=== PATIENT | female | born 1935 | race Caucasian/White ===

== ENCOUNTER 2017-05-02 15:31 | Inpatient (IN) | payer OTHER, MEDICARE ==
[~2017-05-02] VITALS: Ht 165.1 cm; Wt 68.7 kg
[2017-05-02 15:48] VITALS: BP 155/74; PULSE 87; RESP 18; TEMP 99.4; O2SAT 98
--- NOTE | 2017-05-02 15:49 | PD ---
HPI . headache/AMS/lethargy Chief Complaint: headache/AMS/lethargy Time Seen by Provider: 15:49 Travel History International Travel<30 days: No Contact w/Intl Traveler<30days: No Traveled to known affect area: No History of Present Illness HPI 81-year-old female with history of diabetes and chronic kidney disease brought in by [facility] secondary lethargy and altered mental status. Apparently patient's son called 911 due to patient being extremely lethargic and having some altered mental status. Son reports that the patient has not been acting herself for the past day or so. Paramedics report that patient had no specific complaints other than headache on arrival and that she had a mild temperature elevation of approximately 100.1 orally. Here in the emergency department patient does have some altered mental status, she is aware of person and place. She tells me that she has a frontal headache and that it woke her up this morning. She is a poor historian has a very difficult time relaying any other information. Patient was supposed to see nephrology for CKD. On initial inspection patient does have some dried blood on her right nostril. She also appears to have dried blood around her mouth. PFSH Past Medical History Diabetes: Yes Social History Alcohol Use: No Tobacco Use: No Substance Use: No Review of Systems General / Constitutional: No: Fever Eyes: No: Visual changes HENT: No: Headaches Cardiovascular: No: Chest Pain or Discomfort Respiratory: No: Shortness of Breath Gastrointestinal: No: Abdominal Pain Genitourinary: No: Dysuria Musculoskeletal: No: Pain Skin: No Rash Neurologic: Positive: Headache, No: Weakness Psychiatric: No: Depression Endocrine: No: Polydipsia Hematologic/Lymphatic: No: Easy Bruising Physical Exam Narrative GENERAL: AAO x 2, well-nourished, but appears tired SKIN: Warm and dry. No visible rashes or bruising. HEAD: Normocephalic and atraumatic. EYES: No scleral icterus. No injection or drainage. EOM intact, PERRLA ENT: No nasal drainage noted. Mucous membranes pink. Airway patent. coffee ground emesis reminiscent, dried blood in the right nostril, left TM erythematous and appears to have some blood behind TM (hemotympanum) NECK: Supple, trachea midline. No JVD. No lymphadenopathy CARDIOVASCULAR: Regular rate and rhythm without murmurs, gallops, or rubs. RESPIRATORY: Breath sounds equal bilaterally. No accessory muscle use. No rhonchi or rales. GASTROINTESTINAL: Abdomen soft, non-tender, nondistended. EXTREMITIES: No cyanosis, trace pedal edema bilaterally BACK: No obvious deformity. No CVA tenderness. NEURO: CN II-12 intact, PSYCH: AAO x 2, Data Data Last Documented VS Vital Signs Date Time Temp Pulse Resp B/P Pulse Ox O2 Delivery O2 Flow Rate FiO2 05/02/17 16:13 98 Room Air 05/02/17 15:48 99.4 87 18 155/74 Orders Complete Blood Count With Diff (05/02/17 15:49) Comprehensive Metabolic Panel (05/02/17 15:49) Ct Brain W/O Iv Contrast(Rout) (05/02/17 15:49) Ecg Monitoring (05/02/17 15:49) Iv Access Insert/Monitor (05/02/17 15:49) Oximetry (05/02/17 15:49) Electrocardiogram (05/02/17 15:49) Prothrombin Time / Inr (Pt) (05/02/17 15:49) Act Partial Throm Time (Ptt) (05/02/17 15:49) Lactic Acid Sepsis Protocol (05/02/17 15:49) Urinalysis - C+S If Indicated (05/02/17 15:49) Blood Culture (05/02/17 15:49) Chest, Single Ap (05/02/17 15:49) Blood Glucose (05/02/17 15:49) Oxygen Administration (05/02/17 15:49) ^ Straight Catheter (05/02/17 16:01) Ct Cerv Spine W/O Contrast (05/02/17 ) Admit Order (Ed Use Only) (05/02/17 18:35) Labs Laboratory Tests Test 05/02/17 05/02/17 16:05 16:10 White Blood Count 10.5 TH/MM3 Red Blood Count 4.68 MIL/MM3 Hemoglobin 12.9 GM/DL Hematocrit 40.0 % Mean Corpuscular Volume 85.4 FL Mean Corpuscular Hemoglobin 27.7 PG Mean Corpuscular Hemoglobin 32.4 % Concent Red Cell Distribution Width 16.3 % Platelet Count 243 TH/MM3 Mean Platelet Volume 9.1 FL Neutrophils (%) (Auto) 83.9 % Lymphocytes (%) (Auto) 9.6 % Monocytes (%) (Auto) 6.4 % Eosinophils (%) (Auto) 0.0 % Basophils (%) (Auto) 0.1 % Neutrophils # (Auto) 8.8 TH/MM3 Lymphocytes # (Auto) 1.0 TH/MM3 Monocytes # (Auto) 0.7 TH/MM3 Eosinophils # (Auto) 0.0 TH/MM3 Basophils # (Auto) 0.0 TH/MM3 CBC Comment DIFF FINAL Differential Comment Prothrombin Time 10.7 SEC Prothromb Time International 1.0 RATIO Ratio Activated Partial 23.4 SEC Thromboplast Time Sodium Level 135 MEQ/L Potassium Level 4.1 MEQ/L Chloride Level 106 MEQ/L Carbon Dioxide Level 19.9 MEQ/L Anion Gap 9 MEQ/L Blood Urea Nitrogen 19 MG/DL Creatinine 0.98 MG/DL Estimat Glomerular Filtration 54 ML/MIN Rate Random Glucose 181 MG/DL Lactic Acid Level 1.9 mmol/L Calcium Level 9.0 MG/DL Total Bilirubin 0.6 MG/DL Aspartate Amino Transf 26 U/L (AST/SGOT) Alanine Aminotransferase 15 U/L (ALT/SGPT) Alkaline Phosphatase 67 U/L Total Protein 7.2 GM/DL Albumin 3.6 GM/DL Urine Color YELLOW Urine Turbidity CLEAR Urine pH 5.5 Urine Specific [place] 1.025 Urine Protein TRACE mg/dL Urine Glucose (UA) 1000 mg/dL Urine Ketones NEG mg/dL Urine Occult Blood SMALL Urine Nitrite NEG Urine Bilirubin NEG Urine Urobilinogen LESS THAN 2.0 MG/DL Urine Leukocyte Esterase NEG Urine RBC 2 /hpf Urine WBC 1 /hpf Urine Squamous Epithelial 1 /hpf Cells Urine Mucus FEW /lpf Microscopic Urinalysis Comment CATH-CULT NOT IND MDM Medical Decision Making Medical Screen Exam Complete: Yes Emergency Medical Condition: Yes Medical Record Reviewed: Yes Differential Diagnosis UTI, Pneumonia, sepsis, AMS, SAH, brain bleed, CVA Narrative Course 81 yr old female here with c/o headache. Her son reports she is very lethargic. On exam she does have some blood in her left TM. IV access obtained. Labs ordered, CXR and CT scan of brain ordered. Case was discussed with Dr. Dc. CXR with left basilar airspace disease CT brain with ICH. Last Impressions Head CT 05/02/17 3825 Signed Impressions: Service Date/Time: April 17:09 - CONCLUSION: 1. Acute parenchymal hemorrhage within the left frontal lobe measuring 13 mm. 2. Scattered acute subdural hematomas within the frontal lobes bilaterally measuring 4 mm on the left and 3 mm on the right, left parafalcine region in the high parietal lobe measuring 5 mm and left temporal region measuring 5 mm. 3. Minimal acute subarachnoid hemorrhage within the left frontal lobe and bilateral temporal lobes. Miko Rosado MD Chest X-Ray 05/02/17 1544 Signed Impressions: Service Date/Time: April 15:56 - CONCLUSION: Left basilar airspace disease with probable associated effusion. Gold Damon MD 1735: Discussed with the nurse for Dr. Negron, he will look at the scan 1744: Patient will be admitted to the compensation analyst, call back requested 1839: Case discussed with Dr. Lizama. Patient will be admitted under his care. CXR with airspace disease and we would likely to administer azithromycin, however, patient cannot give drug allergy info and family members are not here to provide that info. We have discussed the case with the patient and explained her results, however with her memory issues she is unable to truly understand her condition. Once again, her family is not here for us to provide any information to them. Patient is stable. She is protecting her airway. Admission orders placed. Diagnosis Primary Impression: Brain bleed Admitting Information Admitting Physician Requests: Admit Condition: Stable Lana Richter May 02, 2017 15:49
[2017-05-02 16:13] VITALS: O2SAT 98
--- NOTE | 2017-05-02 16:35 | RADRPT ---
EXAM DATE/TIME: 05/02/2017 15:56 [facility] COMPARISON: No previous studies available for comparison. INDICATIONS : Lethargic, weakness. MEDICAL HISTORY : Diabetes. Chronic kidney diesease. SURGICAL HISTORY : None. ENCOUNTER: Initial ACUITY: 3 days PAIN SCORE: Non-responsive. LOCATION: chest FINDINGS: A single view of the chest demonstrates the lungs to be symmetrically aerated with left basilar atele ctasis and possible associated effusion. Right lung is clear. Heart size is normal. Atherosclerotic c alcification of the aortic arch. Degenerative spurring of the dorsal spine. CONCLUSION: Left basilar airspace disease with probable associated effusion. Gold Damon MD on May 02, 2017 at 16:33 Board Certified Radiologist. This report was verified electronically.
[2017-05-02 16:49] LABS: AUTOMATED NEUTROPHIL # 8.8 TH/MM3 (1.8-7.7); BASOPHIL % 0.1 % (0.0-2.0); HEMO FLAGS DIFF FINAL; LYMPH % 9.6 % (9.0-44.0); MEAN CELL VOLUME 85.4 FL (80.0-100.0); MEAN CORPUSCULAR HEMOGLOBIN 27.7 PG (27.0-34.0); MEAN CORPUSCULAR HGB CONC 32.4 % (32.0-36.0); MONO % 6.4 % (0.0-8.0); NEUT % 83.9 % (16.0-70.0); PLATELET COUNT 243 TH/MM3 (150-450); RED BLOOD COUNT 4.68 MIL/MM3 (4.00-5.30); RED CELL DISTRIBUTION WIDTH 16.3 % (11.6-17.2); WHITE BLOOD COUNT 10.5 TH/MM3 (4.0-11.0)
[2017-05-02 16:58] LABS: BLOOD, URINE SMALL (NEG); GLUCOSE,URINE 1000 mg/dL (NEG); KETONE, URINE NEG (NEG); MUCUS URINE FEW /lpf (OCC); NITRITE,URINE NEG (NEG); PH, URINE 5.5 (5.0-8.5); SQUAMOUS EPITHELIAL CELL URINE 1 /hpf (0-5); URINE COLOR YELLOW (YELLW/STRAW)
[2017-05-02 16:59] LABS: COMMENT (UR) CATH-CULT NOT IND; CULTURE IF INDICATED CATH CULTURE NOT IND
[2017-05-02 17:05] LABS: ALKALINE PHOSPHATASE 67 U/L (45-117); ALT (GPT) 15 U/L (10-53); TOTAL BILIRUBIN ADULT 0.6 MG/DL (0.2-1.0)
[2017-05-02 17:11] LABS: ANION GAP 9 MEQ/L (5-15); AST (GOT) 26 U/L (15-37); BICARBONATE 19.9 MEQ/L (21.0-32.0); BLOOD UREA NITROGEN 19 MG/DL (7-18); CHLORIDE 106 MEQ/L (98-107); GLOMERULAR FILTRATION RATE 54 ML/MIN (>89); POTASSIUM 4.1 MEQ/L (3.5-5.1); SODIUM (NA) 135 MEQ/L (136-145)
[2017-05-02 17:21] LABS: APTT (PATIENT) 23.4 SEC (24.3-30.1); PROTHROMBIN TIME - PATIENT 10.7 SEC (9.8-11.6)
--- NOTE | 2017-05-02 17:29 | RADRPT ---
EXAM DATE/TIME: 05/02/2017 17:09 [facility] COMPARISON: No previous studies available for comparison. INDICATIONS : Altered mental status since last night, complains of headache. RADIATION DOSE: 30.32 CTDIvol (mGy) MEDICAL HISTORY : None SURGICAL HISTORY : None. ENCOUNTER: Initial ACUITY: 1 day PAIN SCALE: 5/10 LOCATION: Cranial TECHNIQUE: Multiple contiguous axial images were obtained of the head. Using automated exposure control and adj ustment of the mA and/or kV according to patient size, radiation dose was kept as low as reasonably a chievable to obtain optimal diagnostic quality images. DICOM format image data is available electro nically for review and comparison. FINDINGS: There is evidence of focal left frontal acute parenchymal contusion measuring 13 mm. Acute subarachn oid hemorrhage is noted within the temporal lobes bilaterally as well as within the left frontal lobe . Tiny bifrontal acute subdural hematomas are noted and measure 4 mm on the left and 3 mm on the rig ht. Approximately 5 mm left parafalcine acute subdural hematoma is also noted. A 5 mm left temporal extraaxial bleed is also noted and either represents a tiny epidural or subdural hematoma. There is no midline shift. No acute infarction is noted. CONCLUSION: 1. Acute parenchymal hemorrhage within the left frontal lobe measuring 13 mm. 2. Scattered acute subdural hematomas within the frontal lobes bilaterally measuring 4 mm on the left and 3 mm on the right, left parafalcine region in the high parietal lobe measuring 5 mm and left tem poral region measuring 5 mm. 3. Minimal acute subarachnoid hemorrhage within the left frontal lobe and bilateral temporal lobes. Miko Rosado MD on May 02, 2017 at 17:17 Board Certified Radiologist. This report was verified electronically.
--- NOTE | 2017-05-02 18:23 | PD ---
Data Data Last Documented VS Vital Signs Date Time Temp Pulse Resp B/P Pulse Ox O2 Delivery O2 Flow Rate FiO2 05/02/17 16:13 98 Room Air 05/02/17 15:48 99.4 87 18 155/74 Orders Complete Blood Count With Diff (05/02/17 15:49) Comprehensive Metabolic Panel (05/02/17 15:49) Ct Brain W/O Iv Contrast(Rout) (05/02/17 15:49) Ecg Monitoring (05/02/17 15:49) Iv Access Insert/Monitor (05/02/17 15:49) Oximetry (05/02/17 15:49) Electrocardiogram (05/02/17 15:49) Prothrombin Time / Inr (Pt) (05/02/17 15:49) Act Partial Throm Time (Ptt) (05/02/17 15:49) Lactic Acid Sepsis Protocol (05/02/17 15:49) Urinalysis - C+S If Indicated (05/02/17 15:49) Blood Culture (05/02/17 15:49) Chest, Single Ap (05/02/17 15:49) Blood Glucose (05/02/17 15:49) Oxygen Administration (05/02/17 15:49) ^ Straight Catheter (05/02/17 16:01) Ct Cerv Spine W/O Contrast (05/02/17 ) Admit Order (Ed Use Only) (05/02/17 18:35) Labs Laboratory Tests Test 05/02/17 05/02/17 16:05 16:10 White Blood Count 10.5 TH/MM3 Red Blood Count 4.68 MIL/MM3 Hemoglobin 12.9 GM/DL Hematocrit 40.0 % Mean Corpuscular Volume 85.4 FL Mean Corpuscular Hemoglobin 27.7 PG Mean Corpuscular Hemoglobin 32.4 % Concent Red Cell Distribution Width 16.3 % Platelet Count 243 TH/MM3 Mean Platelet Volume 9.1 FL Neutrophils (%) (Auto) 83.9 % Lymphocytes (%) (Auto) 9.6 % Monocytes (%) (Auto) 6.4 % Eosinophils (%) (Auto) 0.0 % Basophils (%) (Auto) 0.1 % Neutrophils # (Auto) 8.8 TH/MM3 Lymphocytes # (Auto) 1.0 TH/MM3 Monocytes # (Auto) 0.7 TH/MM3 Eosinophils # (Auto) 0.0 TH/MM3 Basophils # (Auto) 0.0 TH/MM3 CBC Comment DIFF FINAL Differential Comment Prothrombin Time 10.7 SEC Prothromb Time International 1.0 RATIO Ratio Activated Partial 23.4 SEC Thromboplast Time Sodium Level 135 MEQ/L Potassium Level 4.1 MEQ/L Chloride Level 106 MEQ/L Carbon Dioxide Level 19.9 MEQ/L Anion Gap 9 MEQ/L Blood Urea Nitrogen 19 MG/DL Creatinine 0.98 MG/DL Estimat Glomerular Filtration 54 ML/MIN Rate Random Glucose 181 MG/DL Lactic Acid Level 1.9 mmol/L Calcium Level 9.0 MG/DL Total Bilirubin 0.6 MG/DL Aspartate Amino Transf 26 U/L (AST/SGOT) Alanine Aminotransferase 15 U/L (ALT/SGPT) Alkaline Phosphatase 67 U/L Total Protein 7.2 GM/DL Albumin 3.6 GM/DL Urine Color YELLOW Urine Turbidity CLEAR Urine pH 5.5 Urine Specific [place] 1.025 Urine Protein TRACE mg/dL Urine Glucose (UA) 1000 mg/dL Urine Ketones NEG mg/dL Urine Occult Blood SMALL Urine Nitrite NEG Urine Bilirubin NEG Urine Urobilinogen LESS THAN 2.0 MG/DL Urine Leukocyte Esterase NEG Urine RBC 2 /hpf Urine WBC 1 /hpf Urine Squamous Epithelial 1 /hpf Cells Urine Mucus FEW /lpf Microscopic Urinalysis Comment CATH-CULT NOT IND MDM Supervised Visit with CHACHA: Yes Narrative Course I, Dr. Dc, have reviewed the advance practice practitioner's documentation and am in agreement, met with the patient face to face, made the diagnosis, and the medical decision making was done by me. *My assessment and Findings: This 81-year-old female with a history of dementia presents emergency department altered mental status. Review of her CAT scan shows: Last [address] 05/02/17 7514 Signed Impressions: Service Date/Time: April 17:09 - CONCLUSION: 1. Acute parenchymal hemorrhage within the left frontal lobe measuring 13 mm. 2. Scattered acute subdural hematomas within the frontal lobes bilaterally measuring 4 mm on the left and 3 mm on the right, left parafalcine region in the high parietal lobe measuring 5 mm and left temporal region measuring 5 mm. 3. Minimal acute subarachnoid hemorrhage within the left frontal lobe and bilateral temporal lobes. Miko Rosado MD Chest X-Ray 05/02/17 1249 Signed Impressions: Service Date/Time: April 15:56 - CONCLUSION: Left basilar airspace disease with probable associated effusion. Gold Damon MD Cervical Spine CT 05/02/17 0000 Signed Impressions: Service Date/Time: April 19:32 - CONCLUSION: 1. Moderate to severe degenerative disc disease and facet arthropathy. No acute bony abnormality. Meño Sarah MD The patient on my physical exam is alert and awake but pleasantly confused and disoriented. She is oriented to self only. She does follow commands in all 4 extremities, protecting her airway. Sensory is intact. Patient has platelet count within normal limits, coags within normal limits. Patient was discussed with Dr. Negron by me recommends [facility] to the [facility]. Patient was then discussed with Dr. Lizama who agrees for admission. Patient has little understanding of why she is here. No family members are here for counseling. 2 gentleman had walked through the emergency department and asked about her and then left. Critical Care Narrative Aggregate critical care time was 31 minutes. Time to perform other separately billable procedures was not included in the critical care time. My time did not include minutes spent treating any other patients simultaneously or on activities that did not directly contribute to the patient's treatment. The services I provided to this patient were to treat and/or prevent clinically significant deterioration that could result in: , disability, organ failure I provided critical care services requiring my management, as noted below: Chart data review, documentation time, medication orders and management, vital sign assessments/reviewing monitor data, ordering and reviewing lab tests, ordering and interpreting/reviewing x-rays and diagnostic studies, care of the patient and discussion of the patient with the admitting physicians. Diagnosis Primary Impression: Brain bleed Additional Impression: Intracranial hemorrhage Admitting Information Admitting Physician Requests: Admit Condition: Stable Miko Dc MD May 02, 2017 18:23
[2017-05-02 19:16] VITALS: BP 148/81; PULSE 81; RESP 16; O2SAT 97
--- NOTE | 2017-05-02 20:06 | RADRPT ---
EXAM DATE/TIME: 05/02/2017 19:32 [facility] COMPARISON: No previous studies available for comparison. INDICATIONS : Trauma, altered mental status, complains of headache. RADIATION DOSE: 34.23 CTDIvol (mGy) MEDICAL HISTORY : None SURGICAL HISTORY : None. ENCOUNTER: Initial ACUITY: 1 day PAIN SCALE: 0/10 LOCATION: neck TECHNIQUE: Volumetric scanning of the cervical spine was performed. Multiplanar reconstructions in the sagittal, coronal and oblique axial planes were performed. Using automated exposure control and adjustment o f the mA and/or kV according to patient size, radiation dose was kept as low as reasonably achievable to obtain optimal diagnostic quality images. DICOM format image data is available electronically f or review and comparison. FINDINGS: Moderate to severe degenerative disc disease present throughout the cervical spine with a minimal ant erolisthesis of C4 on C5. Facet arthropathy present. No significant central canal stenosis. No prever tebral soft tissue swelling. CONCLUSION: 1. Moderate to severe degenerative disc disease and facet arthropathy. No acute bony abnormality. Meño Sarah MD on May 02, 2017 at 19:58 Board Certified Radiologist. This report was verified electronically.
[2017-05-02 20:52] VITALS: BP 148/81; PULSE 79; RESP 16; O2SAT 96
[2017-05-02 21:00] VITALS: PULSE 84
--- NOTE | 2017-05-02 21:04 | HHI.HP ---
[facility] Service Critical Care Medicine Primary Care Physician Jose Sofia MD Admission Diagnosis ICH Diagnosis: Travel History International Travel<30 Days: No Contact w/Intl Traveler <30 Da: No Traveled to Known Affected Are: No History of Present Illness 81-year-old female with history of diabetes and chronic kidney disease brought in by [facility] secondary lethargy and altered mental status. The patient' s son called 911 due to patient being extremely lethargic and having some altered mental status. Per chart the patient has not been acting herself for the past day or so. Paramedics report that patient had no specific complaints other than headache on arrival and that she had a mild temperature elevation of approximately 100.1 orally. During my examination in the emergency department patient does have some altered mental status, she is aware of person only. CT of the head diagnosed an acute parenchymal hemorrhage within the left frontal lobe measuring 13 mm. scattered acute subdural hematomas within the frontal lobes bilaterally measuring 4 mm on the left and 3 mm on the right, left parafalcine region in the high parietal lobe measuring 5 mm and left temporal region measuring 5 mm. Minimal acute subarachnoid hemorrhage within the left frontal lobe and bilateral temporal lobes. Review of Systems ROS Unobtainable due to patient's altered mental status Past Family Social History Allergies: Coded Allergies: No Known Allergies (Unverified , 05/02/17) Past Medical History Chronic kidney disease Past Surgical History Unobtainable Reported Medications Unobtainable Family History Unobtainable Social History Unobtainable Physical Exam Vital Signs Vital Signs Date Time Temp Pulse Resp B/P Pulse Ox O2 Delivery O2 Flow Rate FiO2 05/02/17 20:52 79 16 148/81 96 Room Air 05/02/17 19:16 81 16 148/81 97 Room Air 05/02/17 16:13 98 Room Air 05/02/17 16:13 98 Room Air 05/02/17 16:13 98 Room Air 05/02/17 15:48 99.4 87 18 155/74 98 Physical Exam GENERAL: Elderly female extremely confused, arousable but lethargic SKIN: Warm and dry. HEAD: Normocephalic. EYES: No scleral icterus. No injection or drainage. NECK: Supple, trachea midline. No JVD or lymphadenopathy. CARDIOVASCULAR: Regular rate and rhythm without murmurs, gallops, or rubs. RESPIRATORY: Breath sounds equal bilaterally. No accessory muscle use. GASTROINTESTINAL: Abdomen soft, non-tender, nondistended. MUSCULOSKELETAL: No cyanosis, or edema. BACK: Nontender without obvious deformity. No CVA tenderness. EXTREMITIES: Moves all 4, clubbing cyanosis or edema Laboratory Laboratory Tests Test 05/02/17 05/02/17 16:05 16:10 White Blood Count 10.5 Red Blood Count 4.68 Hemoglobin 12.9 Hematocrit 40.0 Mean Corpuscular Volume 85.4 Mean Corpuscular Hemoglobin 27.7 Mean Corpuscular Hemoglobin 32.4 Concent Red Cell Distribution Width 16.3 Platelet Count 243 Mean Platelet Volume 9.1 Neutrophils (%) (Auto) 83.9 Lymphocytes (%) (Auto) 9.6 Monocytes (%) (Auto) 6.4 Eosinophils (%) (Auto) 0.0 Basophils (%) (Auto) 0.1 Neutrophils # (Auto) 8.8 Lymphocytes # (Auto) 1.0 Monocytes # (Auto) 0.7 Eosinophils # (Auto) 0.0 Basophils # (Auto) 0.0 CBC Comment DIFF FINAL Differential Comment Prothrombin Time 10.7 Prothromb Time International 1.0 Ratio Activated Partial 23.4 Thromboplast Time Sodium Level 135 Potassium Level 4.1 Chloride Level 106 Carbon Dioxide Level 19.9 Anion Gap 9 Blood Urea Nitrogen 19 Creatinine 0.98 Estimat Glomerular Filtration 54 Rate Random Glucose 181 Lactic Acid Level 1.9 Calcium Level 9.0 Total Bilirubin 0.6 Aspartate Amino Transf 26 (AST/SGOT) Alanine Aminotransferase 15 (ALT/SGPT) Alkaline Phosphatase 67 Total Protein 7.2 Albumin 3.6 Urine Color YELLOW Urine Turbidity CLEAR Urine pH 5.5 Urine Specific [place] 1.025 Urine Protein TRACE Urine Glucose (UA) 1000 Urine Ketones NEG Urine Occult Blood SMALL Urine Nitrite NEG Urine Bilirubin NEG Urine Urobilinogen LESS THAN 2.0 Urine Leukocyte Esterase NEG Urine RBC 2 Urine WBC 1 Urine Squamous Epithelial 1 Cells Urine Mucus FEW Microscopic Urinalysis Comment CATH-CULT NOT IND Date/Time Procedure Status Source Growth 05/02/17 16:05 Aerobic Blood Culture Received Blood Peripheral Pending 05/02/17 16:05 Anaerobic Blood Culture Received Blood Peripheral Pending Result Diagram: 05/02/17 160 05/02/17 1609 Assessment and Plan Assessment and Plan Acute parenchymal hemorrhage within the left frontal - No indication for surgical intervention - Blood pressure control - Supportive care - PT and OT eval and treat as tolerated - Neurosurgery appreciated - Repeat CT a.m. Diabetes - Insulin sliding scale Chronic kidney disease - Strict I's and O's - Electrolyte replacement per ICU protocol - Monitor creatinine levels Hypertension - Labetalol when necessary to keep SBP less than 150 DVT GI prophylaxis - Teds SCDs - No pharmacological DVT prophylaxis due to bleed - Pepcid Critical Care: The total critical care time was 35 minutes. Time to perform other separately billable procedures was not included in the critical care time. Buck Lizama MD May 02, 2017 21:04
--- NOTE | 2017-05-02 21:55 | EKG ---
Date Performed: 05/02/2017 Time Performed: 16:38:49 PTAGE: 81 years EKG: Baseline artifact present Sinus rhythm POSSIBLE LEFT ATRIAL ENLARGEMENT BORDERLINE ECG Clinical correlation is recommended NO PREVIOUS TRACING DOCTOR: Ezekiel Santo Interpretating Date/Time 05/02/2017 21:55:02
--- NOTE | 2017-05-02 23:41 | PD.CONS ---
History of Present Illness Service Neurosurgery Consult Requested By Emergency room Reason for Consult Probable traumatic brain injury Primary Care Physician Jose Sofia MD Diagnoses: History of Present Illness 81-year-old female who lives alone brought to the emergency room per EMS after her family called concerned regarding altered mental status for the past few days. The patient states that she has had a moderate headache for a few days. Denies any definite fevers, but states that she may feel "a little warm". Denies any chest pain, shortness breath, abdominal discomfort, nausea, emesis, urinary tract symptoms. She complains of some aching in her cast but no significant joint pain. No recent skin lesions or rash. She does not admit to any definite confusion. She does state that she has not felt well for a few days, but does not verbalize any specific complaints. She states that she has been eating relatively well. She is not aware that she has fallen. Denies significant gait difficulty Review of Systems Constitutional: COMPLAINS OF: Dizziness, DENIES: Fever, Change in appetite Eyes: DENIES: Blurred vision, Diplopia, Vision loss Ears, nose, mouth, throat: DENIES: Tinnitus, Hearing loss, Vertigo, Throat pain Respiratory: DENIES: Cough, Shortness of breath Cardiovascular: DENIES: Chest pain, Palpitations, Syncope Gastrointestinal: DENIES: Abdominal pain, Diarrhea, Nausea, Vomiting Musculoskeletal: COMPLAINS OF: Muscle aches, Neck pain, DENIES: Joint pain, Back pain Hematologic/lymphatic: DENIES: Bruising Neurologic: COMPLAINS OF: Headache, Poor Balance, DENIES: Abnormal gait, Speech Problems Psychiatric: DENIES: Anxiety, Confusion Past Family Social History Allergies: Coded Allergies: No Known Allergies (Unverified , 05/02/17) Past Medical History Chronic kidney disease Diabetes Past Surgical History She denies any major surgeries Social History She lives alone. She states that her two sons live nearby. No history of significant alcohol use. Does not smoke cigarettes Physical Exam Vital Signs Vital Signs Date Time Temp Pulse Resp B/P Pulse Ox O2 Delivery O2 Flow Rate FiO2 05/02/17 20:52 79 16 148/81 96 Room Air 05/02/17 19:16 81 16 148/81 97 Room Air 05/02/17 16:13 98 Room Air 05/02/17 16:13 98 Room Air 05/02/17 16:13 98 Room Air 05/02/17 15:48 99.4 87 18 155/74 98 Physical Exam GENERAL: This is a well-nourished, well-developed patient, in no apparent distress. SKIN: No rashes, ecchymoses or lesions. Slightly warm to touch. She is not sweating. HEAD: Moderate tenderness over the midline occipital region where there is noted to be mild contusion without laceration. EYES: Sclerae are clear and nonicteric ENT: Edentulous. Oropharynx clear. Mild left hemotympanum. No CSF otorrhea or rhinorrhea. No facial fracture or deformity. NECK: Trachea midline. No JVD or lymphadenopathy. Supple, mild tenderness which she states is chronic CARDIOVASCULAR: Regular rate and rhythm without murmurs, gallops, or rubs. RESPIRATORY: Clear to auscultation. Breath sounds equal bilaterally. No wheezes , rales, or rhonchi. GASTROINTESTINAL: Abdomen soft, non-tender, nondistended. No hepato-splenomegaly , or palpable masses. No guarding. MUSCULOSKELETAL: Extremities without clubbing, cyanosis, or edema. No joint tenderness, effusion, or edema noted. Mild to moderate calf tenderness. No pain with range of motion of the joints throughout the upper and lower extremities. Posterior tibial and dorsalis pedis pulses 2+ bilateral No extremity atrophy or fasciculations NEUROLOGICAL: Awake and alert Oriented to person, month. She knows that she is in the hospital. She is able to tell me her address and reasonable details about her family. Speech is clear Conversant and appropriate Follow simple commands well Answers most simple questions appropriately As some impairment of judgment and insight Recent and remote memory are at least mildly impaired. She does not recall any recent falls or injuries. No evidence of anxiety or depression Pupils are equal and reactive to accommodation. Extra-ocular movements, visual pope to confrontation, facial sensorimotor, tongue, palate, sternocleidomastoid testing, and bilateral shoulder shrug are all intact. Her hearing seems somewhat diminished to finger rub bilateral. Sensation is intact to light touch in all extremities Strength normal major flexion and extension groups all extremities Lennie's absent bilaterally No ankle clonus Plantar responses absent bilateral Fine motor movements intact upper extremities Laboratory Laboratory Tests Test 05/02/17 05/02/17 16:05 16:10 White Blood Count 10.5 Red Blood Count 4.68 Hemoglobin 12.9 Hematocrit 40.0 Mean Corpuscular Volume 85.4 Mean Corpuscular Hemoglobin 27.7 Mean Corpuscular Hemoglobin 32.4 Concent Red Cell Distribution Width 16.3 Platelet Count 243 Mean Platelet Volume 9.1 Neutrophils (%) (Auto) 83.9 Lymphocytes (%) (Auto) 9.6 Monocytes (%) (Auto) 6.4 Eosinophils (%) (Auto) 0.0 Basophils (%) (Auto) 0.1 Neutrophils # (Auto) 8.8 Lymphocytes # (Auto) 1.0 Monocytes # (Auto) 0.7 Eosinophils # (Auto) 0.0 Basophils # (Auto) 0.0 CBC Comment DIFF FINAL Differential Comment Prothrombin Time 10.7 Prothromb Time International 1.0 Ratio Activated Partial 23.4 Thromboplast Time Sodium Level 135 Potassium Level 4.1 Chloride Level 106 Carbon Dioxide Level 19.9 Anion Gap 9 Blood Urea Nitrogen 19 Creatinine 0.98 Estimat Glomerular Filtration 54 Rate Random Glucose 181 Lactic Acid Level 1.9 Calcium Level 9.0 Total Bilirubin 0.6 Aspartate Amino Transf 26 (AST/SGOT) Alanine Aminotransferase 15 (ALT/SGPT) Alkaline Phosphatase 67 Total Protein 7.2 Albumin 3.6 Urine Color YELLOW Urine Turbidity CLEAR Urine pH 5.5 Urine Specific [place] 1.025 Urine Protein TRACE Urine Glucose (UA) 1000 Urine Ketones NEG Urine Occult Blood SMALL Urine Nitrite NEG Urine Bilirubin NEG Urine Urobilinogen LESS THAN 2.0 Urine Leukocyte Esterase NEG Urine RBC 2 Urine WBC 1 Urine Squamous Epithelial 1 Cells Urine Mucus FEW Microscopic Urinalysis Comment CATH-CULT NOT IND Date/Time Procedure Status Source Growth 05/02/17 16:05 Aerobic Blood Culture Received Blood Peripheral Pending 05/02/17 16:05 Anaerobic Blood Culture Received Blood Peripheral Pending Result Diagram: 05/02/17 1605 05/02/17 1605 Imaging 05/02/17 CT scan of the head and cervical spine images reviewed by the undersigned. Agree with findings as noted below: Head CT 05/02/17 1549 Signed Impressions: Service Date/Time: April 17:09 - CONCLUSION: 1. Acute parenchymal hemorrhage within the left frontal lobe measuring 13 mm. 2. Scattered acute subdural hematomas within the frontal lobes bilaterally measuring 4 mm on the left and 3 mm on the right, left parafalcine region in the high parietal lobe measuring 5 mm and left temporal region measuring 5 mm. 3. Minimal acute subarachnoid hemorrhage within the left frontal lobe and bilateral temporal lobes. Miko Rosado MD Chest X-Ray 05/02/17 1549 Signed Impressions: Service Date/Time: April 15:56 - CONCLUSION: Left basilar airspace disease with probable associated effusion. Gold Damon MD Cervical Spine CT 05/02/17 0000 Signed Impressions: Service Date/Time: April 19:32 - CONCLUSION: 1. Moderate to severe degenerative disc disease and facet arthropathy. No acute bony abnormality. Meño Sarah MD Assessment and Plan Assessment and Plan Impression: 1. 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 She does not actually recall any particular injury and may have had a syncopal episode. 2. History of diabetes 3. History of chronic kidney disease Recommendations: Findings were discussed with the patient She has been admitted to the intensive surgical care unit for close neurologic checks and vital signs. Her blood pressure is presently satisfactory. Non-chemical DVT prophylaxis May mobilize out of bed as tolerated Physical therapy evaluation of her gait. Follow-up CT scan head Gerry Negron MD May 02, 2017 23:41
[2017-05-03] VITALS (13 sets, daily range): BP systolic 135–166; BP diastolic 63–75; PULSE 66–84; RESP 17–26; TEMP 97.5–99.2; O2SAT 93–99
[2017-05-03] MEDS ORDERED: CHLORHEXIDINE GLUCONATE 2 % 1 PACK (2 CLOTHS) TOP PRN (00:15)
[2017-05-03] MEDS ORDERED: SENNOSIDES 8.6 MG TAB PO PRN (00:15)
[2017-05-03] MEDS ORDERED: MORPHINE SULFATE 4 MG/ML INJ IV PRN (00:15)
[2017-05-03] MEDS ORDERED: RESP: ALBUTEROL 2.5 MG/IPRATROPIUM 0.5 MG NEB (PRN) INH (00:15)
[2017-05-03] MEDS ORDERED: LORazepam 2 MG/ML VIAL IV PRN (00:15)
[2017-05-03] MEDS ORDERED: ACETAMINOPHEN 325 MG TAB PO PRN (00:15)
[2017-05-03] MEDS ORDERED: BISACODYL 10 MG SUPP RECTAL PRN (00:15)
[2017-05-03] MEDS ORDERED: SODIUM CHLORIDE 0.9% FLUSH 10 ML FLUSH PRN (00:15)
[2017-05-03] MEDS ORDERED: MISCELLANEOUS NURSING INFORMATION XX SCH (00:15)
[2017-05-03] MEDS ORDERED: MAGNESIUM HYDROXIDE SUSP 30 ML CUP PO PRN (00:15)
[2017-05-03] MEDS ORDERED: LACTULOSE SYRUP 20 GM/30 ML CUP PO PRN (00:15)
[2017-05-03] MEDS: SODIUM CHLOR 0.9% 1000 ML INJ 1,000 ML IV SCH ×2 (01:11→12:01)
[2017-05-03] MEDS: LABETALOL HCL 100 MG/20 ML VIAL IV PUSH PRN ×2 (02:43→21:19)
[2017-05-03] MEDS: CHLORHEXIDINE GLUCONATE 2 % 1 PACK (2 CLOTHS) TOP SCH (03:11)
[2017-05-03 05:32] LABS: AUTOMATED NEUTROPHIL # 7.4 TH/MM3 (1.8-7.7); BASOPHIL % 0.3 % (0.0-2.0); EOSINOPHIL % 0.1 % (0.0-4.0); HEMATOCRIT 36.9 % (35.0-46.0); HEMO FLAGS DIFF FINAL; LYMPH % 14.6 % (9.0-44.0); LYMPHOCYTE # 1.5 TH/MM3 (1.0-4.8); MEAN CELL VOLUME 84.6 FL (80.0-100.0); MEAN CORPUSCULAR HEMOGLOBIN 27.7 PG (27.0-34.0); MEAN CORPUSCULAR HGB CONC 32.8 % (32.0-36.0); MONO % 11.1 % (0.0-8.0); NEUT % 73.9 % (16.0-70.0); PLATELET COUNT 216 TH/MM3 (150-450); RED BLOOD COUNT 4.37 MIL/MM3 (4.00-5.30)
[2017-05-03 06:36] LABS: BICARBONATE 22.9 MEQ/L (21.0-32.0)
--- NOTE | 2017-05-03 09:06 | HHI.NSPN ---
(Chet Raphael) History Chief Complaint: Headache (Chet Raphael) Interval History 05/02: 81-year-old female who lives alone brought to the emergency room per EMS after her family called concerned regarding altered mental status for the past few days. The patient states that she has had a moderate headache for a few days. Denies any definite fevers, but states that she may feel "a little warm". Denies any chest pain, shortness breath, abdominal discomfort, nausea, emesis, urinary tract symptoms. She complains of some aching in her cast but no significant joint pain. No recent skin lesions or rash. She does not admit to any definite confusion. She does state that she has not felt well for a few days, but does not verbalize any specific complaints. She states that she has been eating relatively well. She is not aware that she has fallen. Denies significant gait difficulty 05/03: The patient is asleep but awakens to verbal stimuli. She is alert after that and readily interacts. She says she is doing good but does endorse a headache to the frontal region. She also endorses some dizziness if she lifts her head off the pillow and pain to the neck. (Chet Raphael) System Review Comments Constitutional: Patient denies any fever or chills. HEENT: Patient has pain to the back of the head. She states she has some chronic hearing problems with the right ear. Neck: Patient complains of pain to the back of the neck and some soreness to the anterior neck. Respiratory: Patient has a cough with some phlegm which doesn't come up. She denies any shortness of breath. Cardiovascular: Patient has some chest pain with coughing. She denies any palpitations or irregular heartbeat. Gastrointestinal: Patient has some abdominal pain with coughing. She denies any nausea, vomiting or incontinence of stool. Genitourinary: Patient denies any incontinence of urine. Musculoskeletal: Patient states she has bruising and an abrasion to the left forearm. She also endorses chronic knee pain. Otherwise she has no pain or weakness to the extremities. Neurologic: Patient complains of headache and when lifting her head up dizziness. She denies any numbness or tingling. (Chet Raphael) Exam Results Vital Signs Date Time Temp Pulse Resp B/P Pulse Ox O2 Delivery O2 Flow Rate FiO2 05/03/17 07:44 96 Nasal Cannula 1.00 05/03/17 06:00 69 05/03/17 04:00 99.2 17 139/63 Intake and Output 05/02/17 05/02/17 05/03/17 08:00 16:00 00:00 Intake Total 0 ml Output Total 300 ml Balance -300 ml (Chet Raphael) Physical Examination GENERAL: Asleep but awakens to verbal stimuli, after that alert, readily interacts, affect normal, no apparent distress. SKIN: Warm & dry. Ecchymosis to left elbow and abrasion to left forearm. HEENT: TTP to occipital scalp which is mildly swollen w/small ecchymotic area. PERRLA, EOMI. Decreased hearing to right ear. MMM & pink. NECK: Midline cervical spine mildly TTP chronically, no JVD, trachea midline. CARDIOVASCULAR: S1S2 w/RRR w/o M/G/R, radial & pedal pulses 2+, cap refill < 2 sec, no pedal edema. Monitor is sinus rhythm w/o any ectopy noted. RESPIRATORY: CTAB w/o W/R/R, equal excursion, nonlaboured, on 1L NC. GASTROINTESTINAL: Abdomen soft, nontender, positive bowel sounds. MUSCULOSKELETAL: MARRO[place]IN w/o difficulty. Mildly TTP chronically to bilateral knees which have healed surgical scars. Midline thoracolumbar spine NTTP. NEUROLOGICAL: Asleep but awakens to verbal stimuli, then alert after that, oriented to person , place & time. Speech is clear & appropriate but she is confused as to why she is in the hospital. Follows simple commands w/o difficulty. CN II-XII grossly intact except for VIII on right side, patient states she has been having problems with it before admission. Sensation grossly intact to light touch. Motor strength 5/5 to all major flexion & extension muscle groups. (Chet Raphael) Lab, Micro, Other Results Allergies Coded Allergies Type Severity Reaction Last Updated Verified No Known Allergies 05/02/17 No Recent Impressions Head CT 05/02/17 1549 Signed Impressions: Service Date/Time: April 17:09 - CONCLUSION: 1. Acute parenchymal hemorrhage within the left frontal lobe measuring 13 mm. 2. Scattered acute subdural hematomas within the frontal lobes bilaterally measuring 4 mm on the left and 3 mm on the right, left parafalcine region in the high parietal lobe measuring 5 mm and left temporal region measuring 5 mm. 3. Minimal acute subarachnoid hemorrhage within the left frontal lobe and bilateral temporal lobes. Miko Rosado MD Chest X-Ray 05/02/17 1549 Signed Impressions: Service Date/Time: April 15:56 - CONCLUSION: Left basilar airspace disease with probable associated effusion. Gold Damon MD Cervical Spine CT 05/02/17 0000 Signed Impressions: Service Date/Time: April 19:32 - CONCLUSION: 1. Moderate to severe degenerative disc disease and facet arthropathy. No acute bony abnormality. Meño Sarah MD ///// 06:00 18:00 06:00 18:00 06:00 18:00 Intake Total 284 ml Output Total 300 ml Balance -16 ml Intake Oral 0 ml IV Total 284 ml Output Urine Total 300 ml # Bowel Movements 0 Laboratory Tests Test 05/02/17 05/02/17 05/02/17 05/03/17 16:05 16:10 21:05 04:50 White Blood Count 10.5 TH/MM3 10.0 TH/MM3 Red Blood Count 4.68 MIL/MM3 4.37 MIL/MM3 Hemoglobin 12.9 GM/DL 12.1 GM/DL Hematocrit 40.0 % 36.9 % Mean Corpuscular Volume 85.4 FL 84.6 FL Mean Corpuscular Hemoglobin 27.7 PG 27.7 PG Mean Corpuscular Hemoglobin 32.4 % 32.8 % Concent Red Cell Distribution Width 16.3 % 16.0 % Platelet Count 243 TH/MM3 216 TH/MM3 Mean Platelet Volume 9.1 FL 8.9 FL Neutrophils (%) (Auto) 83.9 % 73.9 % Lymphocytes (%) (Auto) 9.6 % 14.6 % Monocytes (%) (Auto) 6.4 % 11.1 % Eosinophils (%) (Auto) 0.0 % 0.1 % Basophils (%) (Auto) 0.1 % 0.3 % Neutrophils # (Auto) 8.8 TH/MM3 7.4 TH/MM3 Lymphocytes # (Auto) 1.0 TH/MM3 1.5 TH/MM3 Monocytes # (Auto) 0.7 TH/MM3 1.1 TH/MM3 Eosinophils # (Auto) 0.0 TH/MM3 0.0 TH/MM3 Basophils # (Auto) 0.0 TH/MM3 0.0 TH/MM3 CBC Comment DIFF FINAL DIFF FINAL Differential Comment Prothrombin Time 10.7 SEC Prothromb Time International 1.0 RATIO Ratio Activated Partial 23.4 SEC Thromboplast Time Sodium Level 135 MEQ/L 138 MEQ/L Potassium Level 4.1 MEQ/L 3.0 MEQ/L Chloride Level 106 MEQ/L 106 MEQ/L Carbon Dioxide Level 19.9 MEQ/L 22.9 MEQ/L Anion Gap 9 MEQ/L 9 MEQ/L Blood Urea Nitrogen 19 MG/DL 15 MG/DL Creatinine 0.98 MG/DL 0.87 MG/DL Estimat Glomerular Filtration 54 ML/MIN 62 ML/MIN Rate Random Glucose 181 MG/DL 150 MG/DL Lactic Acid Level 1.9 mmol/L Calcium Level 9.0 MG/DL 8.9 MG/DL Total Bilirubin 0.6 MG/DL Aspartate Amino Transf 26 U/L (AST/SGOT) Alanine Aminotransferase 15 U/L (ALT/SGPT) Alkaline Phosphatase 67 U/L Total Protein 7.2 GM/DL Albumin 3.6 GM/DL Urine Color YELLOW Urine Turbidity CLEAR Urine pH 5.5 Urine Specific [place] 1.025 Urine Protein TRACE mg/dL Urine Glucose (UA) 1000 mg/dL Urine Ketones NEG mg/dL Urine Occult Blood SMALL Urine Nitrite NEG Urine Bilirubin NEG Urine Urobilinogen LESS THAN 2.0 MG/DL Urine Leukocyte Esterase NEG Urine RBC 2 /hpf Urine WBC 1 /hpf Urine Squamous Epithelial 1 /hpf Cells Urine Mucus FEW /lpf Microscopic Urinalysis Comment CATH-CULT NOT IND Nasal Screen MRSA (PCR) MRSA NOT DETECTED Vital Signs Date Time Temp Pulse Resp B/P Pulse Ox O2 Delivery O2 Flow Rate FiO2 05/03/17 07:44 96 Nasal Cannula 1.00 05/03/17 06:00 69 05/03/17 04:00 99.2 72 17 139/63 93 05/03/17 04:00 72 05/03/17 03:00 92 Nasal Cannula 2.00 05/03/17 02:00 68 05/03/17 00:00 98.8 84 22 135/65 94 05/03/17 00:00 71 05/02/17 21:00 84 05/02/17 21:00 94 Room Air 05/02/17 20:52 79 16 148/81 96 Room Air 05/02/17 19:16 81 16 148/81 97 Room Air 05/02/17 16:13 98 Room Air 05/02/17 16:13 98 Room Air 05/02/17 16:13 98 Room Air 05/02/17 15:48 99.4 87 18 155/74 98 (Chet Raphael) Medical Decision Making Impression and Plan Impression: 1. 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 She does not actually recall any particular injury and may have had a syncopal episode. 2. History of diabetes 3. History of chronic kidney disease The patient is doing well this morning and remains neurologically intact. Plan: Plan of care discussed with patient. Plan of care discussed with Nursing & Physical Therapy. Primary management per Hospitalist/Pulp Operator. Frequent neuro checks. Non-chemical DVT prophylaxis. May mobilize out of bed as tolerated. Physical therapy evaluation of her gait. Follow-up CT scan head this morning. (Chet Raphael) Attending Statement I have personally seen and examined the patient on the date of this note. Pertinent documentation and study results have been reviewed by the undersigned. I have personally developed the treatment plan and performed medical decision making. Agree with findings, exam, and treatment plan as noted above. This evening on exam she is awake and alert. Denies significant headache. No nausea or vomiting. Somewhat less confused. Speech is clear and appropriate Follows commands well This all extremities with good strength Extraocular movements intact Facial motor movement symmetric Stable neurologic exam. 05/03/17 CT scan head images reviewed. Early improvement in left frontal contusion and falcine subdural hematoma. No significant mass effect. Continue close C neuro checks. Transfer to floor over the weekend is stable Systolic blood pressure elevated to 180s this evening. Discussed with nursing staff. Utilizing when necessary antihypertensive medications. (Gerry Negron MD) Chet Raphael May 03, 2017 09:06 Gerry Negron MD May 03, 2017 23:17
[2017-05-03] MEDS: SODIUM CHLORIDE 0.9% FLUSH 10 ML FLUSH SCH ×2 (10:00→20:53)
[2017-05-03] MEDS: FAMOTIDINE 20 MG/2 ML VIAL IV PUSH SCH ×2 (10:00→20:53)
[2017-05-03] MEDS: DOCUSATE SODIUM 50 MG/SENNA 8.6 MG TAB PO SCH ×2 (10:00→20:53)
[2017-05-03] MEDS ORDERED: [UNRECOGNIZED DRUG - OTHER] PO (10:22)
[2017-05-03] MEDS ORDERED: CHOL1CAP14 PO (10:52)
[2017-05-03] MEDS ORDERED: CETI10 PO (10:52)
[2017-05-03] MEDS ORDERED: COEN400C PO (10:52)
[2017-05-03] MEDS ORDERED: MULTTAB68 PO (10:52)
[2017-05-03] MEDS ORDERED: ASPI-110 PO (10:52)
[2017-05-03] MEDS ORDERED: METF750T PO (10:52)
[2017-05-03] MEDS ORDERED: LEVO50TA4 PO (10:52)
[2017-05-03] MEDS ORDERED: magnesium (10:53)
[2017-05-03] MEDS ORDERED: AMLO5TAB2 PO (10:53)
[2017-05-03] MEDS ORDERED: TRIA1CAP6 PO (10:53)
[2017-05-03] MEDS ORDERED: CYAN1TAB24 PO (10:53)
[2017-05-03] MEDS ORDERED: ATOR10TA15 PO (10:53)
[2017-05-03] MEDS ORDERED: [UNRECOGNIZED DRUG - CODE] (10:53)
[2017-05-03] MEDS ORDERED: ENAL20TA PO (10:53)
[2017-05-03] MEDS ORDERED: OMEP20TA PO (10:53)
[2017-05-03] MEDS ORDERED: GABA100C4 PO (10:53)
[2017-05-03] MEDS ORDERED: ENALAPRIL MALEATE 10 MG TAB PO SCH (12:30)
[2017-05-03] MEDS ORDERED: amLODIPine BESYLATE 5 MG TAB PO SCH ×2 (12:30→21:00)
--- NOTE | 2017-05-03 14:38 | HHI.CCPN ---
Subjective Remarks/Hospital Course 81-year-old female with history of diabetes and chronic kidney disease brought in by [facility] secondary lethargy and altered mental status. The patient' s son called 911 due to patient being extremely lethargic and having some altered mental status. Per chart the patient has not been acting herself for the past day or so. Paramedics report that patient had no specific complaints other than headache on arrival and that she had a mild temperature elevation of approximately 100.1 orally. During my examination in the emergency department patient does have some altered mental status, she is aware of person only. CT of the head diagnosed an acute parenchymal hemorrhage within the left frontal lobe measuring 13 mm. scattered acute subdural hematomas within the frontal lobes bilaterally measuring 4 mm on the left and 3 mm on the right, left parafalcine region in the high parietal lobe measuring 5 mm and left temporal region measuring 5 mm. Minimal acute subarachnoid hemorrhage within the left frontal lobe and bilateral temporal lobes. 05/03 . Lying in bed today oriented 3. Improved hemorrhage on the CT done today. Blood pressure better controlled after starting home meds Objective Vital Signs Date Time Temp Pulse Resp B/P Pulse Ox O2 Delivery O2 Flow Rate FiO2 05/03/17 12:00 97.5 69 26 166/71 96 05/03/17 08:00 Nasal Cannula 2.00 Intake and Output 05/02/17 05/02/17 05/03/17 08:00 16:00 00:00 Intake Total 0 ml Output Total 300 ml Balance -300 ml Result Diagram: 05/03/17 0450 05/03/17 0450 Objective Remarks GENERAL/NEURO: Elderly female confusion improved, AO x3, no obvious focal deficits SKIN: Warm and dry. HEAD: Normocephalic. EYES: No scleral icterus. No injection or drainage. NECK: Supple, trachea midline. No JVD or lymphadenopathy. CARDIOVASCULAR: Regular rate and rhythm without murmurs, gallops, or rubs. RESPIRATORY: Breath sounds equal bilaterally. No accessory muscle use. GASTROINTESTINAL: Abdomen soft, non-tender, nondistended. MUSCULOSKELETAL: No cyanosis, or edema. BACK: Nontender without obvious deformity. No CVA tenderness. EXTREMITIES: Moves all 4, clubbing cyanosis or edema A/P Assessment and Plan Acute parenchymal hemorrhage within the left frontal, scattered acute SHD bilaterally and minimal acute SAH - No indication for surgical intervention - Blood pressure control - Clinically improved. CT head resolving hemorrhage - Supportive care - PT and OT eval and treat as tolerated - Neurosurgery appreciated Diabetes - Insulin sliding scale Chronic kidney disease - Strict I's and O's - Electrolyte replacement per ICU protocol - Monitor creatinine levels Hypertension - Labetalol when necessary to keep SBP less than 150 - Resume home anti hypertensives DVT GI prophylaxis - Teds SCDs - No pharmacological DVT prophylaxis due to bleed - Pepcid Critical Care: Level 3 Tina Bolton MD May 03, 2017 14:38
--- NOTE | 2017-05-03 14:56 | RADRPT ---
EXAM DATE/TIME: 05/03/2017 14:15 [facility] COMPARISON: CT BRAIN W/O CONTRAST, May 02, 2017, 17:09. INDICATIONS : Patient is confused, subdural hematoma follow up. RADIATION DOSE: 48.55 CTDIvol (mGy) MEDICAL HISTORY : Diabetes mellitus type 2. SURGICAL HISTORY : None. ENCOUNTER: Subsequent ACUITY: 1 day PAIN SCALE: 2/10 LOCATION: Bilateral cranial TECHNIQUE: Multiple contiguous axial images were obtained of the head. Using automated exposure control and adj ustment of the mA and/or kV according to patient size, radiation dose was kept as low as reasonably a chievable to obtain optimal diagnostic quality images. DICOM format image data is available electro nically for review and comparison. FINDINGS: The left frontal contusion is smaller measuring 5 mm, it measured almost 1.2 cm previously. Ther e are areas of edema surrounding it with lucency and/or edema involving the right frontal lobe not ch anged. There is no mass effect. The subdural hematoma adjacent to the falx is also smaller measuring 3 mm in maximum diameter. The previously seen subarachnoid hemorrhages are no longer seen. CONCLUSION: Reduction in size of the subdural hematoma adjacent to the falx and left frontal lobe hemorrhage. No mass effect. Alexandra Do MD on May 03, 2017 at 14:50 Board Certified Radiologist. This report was verified electronically.
[2017-05-03] MEDS ORDERED: POTASSIUM CHLOR 20 MEQ PREMIX 100 ML IV PRN (15:15)
[2017-05-03] MEDS ORDERED: POTASSIUM PHOSPHATE INJ 30 MMOL in SODIUM CHLOR 0.9% 250 ML INJ 250 ML IV PRN (15:15)
[2017-05-03] MEDS ORDERED: POTASSIUM PHOSPHATE MONOBASIC 500 MG TAB PO/TUBE PRN (15:15)
[2017-05-03] MEDS ORDERED: POTASSIUM CHLOR 40 MEQ PREMIX 100 ML IV PRN ×2 (15:15)
[2017-05-03] MEDS ORDERED: MAGNESIUM SULFATE INJ 4 GM in SODIUM CHLORIDE 0.9% INJ 92 ML IV PRN (15:15)
[2017-05-03] MEDS ORDERED: POTASSIUM CHLORIDE 25 MEQ EFFERVESCENT TAB PO PRN (15:15)
[2017-05-03] MEDS ORDERED: POTASSIUM PHOSPHATE MONOBASIC 500 MG TAB PO PRN (15:15)
[2017-05-03] MEDS ORDERED: SODIUM PHOSPHATE INJ 30 MMOL in SODIUM CHLOR 0.9% 250 ML INJ 240 ML IV PRN (15:15)
[2017-05-03] MEDS ORDERED: MAGNESIUM OXIDE 400 MG TAB PO PRN (15:15)
[2017-05-03] MEDS ORDERED: MAGNESIUM SULFATE INJ 2 GM in SODIUM CHLORIDE 0.9% INJ 96 ML IV PRN (15:15)
[2017-05-03] MEDS: POTASSIUM CHLOR 20 MEQ PREMIX 100 ML IV PRN ×2 (16:53→21:19)
[2017-05-03] MEDS: ATORVASTATIN 10 MG TAB PO SCH (20:53)
[2017-05-04] VITALS (9 sets, daily range): BP systolic 127–167; BP diastolic 60–80; PULSE 59–95; RESP 14–27; TEMP 97.9–98.2; O2SAT 93–100
[2017-05-04] MEDS: SODIUM CHLOR 0.9% 1000 ML INJ 1,000 ML IV SCH (02:02)
[2017-05-04] MEDS: POTASSIUM CHLOR 20 MEQ PREMIX 100 ML IV PRN (03:50)
[2017-05-04] MEDS: CHLORHEXIDINE GLUCONATE 2 % 1 PACK (2 CLOTHS) TOP SCH (04:21)
--- NOTE | 2017-05-04 06:04 | HHI.NSPN ---
History Chief Complaint: Headache Interval History Interval History 05/02: 81-year-old female who lives alone brought to the emergency room per EMS after her family called concerned regarding altered mental status for the past few days. The patient states that she has had a moderate headache for a few days. Denies any definite fevers, but states that she may feel "a little warm". Denies any chest pain, shortness breath, abdominal discomfort, nausea, emesis, urinary tract symptoms. She complains of some aching in her cast but no significant joint pain. No recent skin lesions or rash. She does not admit to any definite confusion. She does state that she has not felt well for a few days, but does not verbalize any specific complaints. She states that she has been eating relatively well. She is not aware that she has fallen. Denies significant gait difficulty 05/03: The patient is asleep but awakens to verbal stimuli. She is alert after that and readily interacts. She says she is doing good but does endorse a headache to the frontal region. She also endorses some dizziness if she lifts her head off the pillow an 05/04: Patient is awake and alert without complaints of headache, nausea or visual dysfunction. She has been up and ambulating in the room. Exam Results Vital Signs Date Time Temp Pulse Resp B/P Pulse Ox O2 Delivery O2 Flow Rate FiO2 05/04/17 04:00 64 05/04/17 04:00 97.9 21 130/60 98 05/03/17 19:00 Room Air 95 05/03/17 08:00 2.00 Intake and Output 05/03/17 05/03/17 05/04/17 08:00 16:00 00:00 Intake Total 284 ml 1240 ml 1311 ml Output Total 0 ml Balance 284 ml 1240 ml 1311 ml Physical Examination NEUROLOGICAL: Alert and awake. Mental status is normal. Patient is oriented 3. Speech intact. Cranial nerves II-XII intact. Motor 5 over 5 throughout. Sensory intact to light touch and pain. Lab, Micro, Other Results Date/Time Procedure Status Source Growth 7/27/17 16:05 Aerobic Blood Culture - Preliminary Resulted Blood Peripheral NO GROWTH IN 1 DAY 05/02/17 16:05 Anaerobic Blood Culture - Preliminary Resulted Blood Peripheral NO GROWTH IN 1 DAY Medical Decision Making Impression and Plan Status post closed head injury with left frontal contusional hemorrhage and scattered small subdural hemorrhages which are stable on follow-up CT scan. Neurological examination intact. Plan: Patient is clear for transfer out of ICU. Begin physical therapy and mobilization. Corky Gimenez MD May 04, 2017 06:04
[2017-05-04] MEDS: LEVOTHYROXINE SODIUM 50 MCG TAB PO SCH (06:20)
[2017-05-04 06:26] LABS: AUTOMATED NEUTROPHIL # 7.4 TH/MM3 (1.8-7.7); BASOPHIL # 0.1 TH/MM3 (0-0.2); BASOPHIL % 0.7 % (0.0-2.0); EOSINOPHIL % 0.1 % (0.0-4.0); HEMATOCRIT 38.1 % (35.0-46.0); HEMO FLAGS DIFF FINAL; LYMPH % 12.8 % (9.0-44.0); LYMPHOCYTE # 1.3 TH/MM3 (1.0-4.8); MEAN CELL VOLUME 83.5 FL (80.0-100.0); MEAN CORPUSCULAR HEMOGLOBIN 28.5 PG (27.0-34.0); MEAN CORPUSCULAR HGB CONC 34.2 % (32.0-36.0); MONO % 11.9 % (0.0-8.0); NEUT % 74.5 % (16.0-70.0); PLATELET COUNT 177 TH/MM3 (150-450); RED BLOOD COUNT 4.57 MIL/MM3 (4.00-5.30); RED CELL DISTRIBUTION WIDTH 16.3 % (11.6-17.2)
[2017-05-04 06:31] LABS: ALKALINE PHOSPHATASE 63 U/L (45-117); ALT (GPT) 12 U/L (10-53); ANION GAP 7 MEQ/L (5-15); AST (GOT) 13 U/L (15-37); BLOOD UREA NITROGEN 12 MG/DL (7-18); CHLORIDE 111 MEQ/L (98-107); GLOMERULAR FILTRATION RATE 76 ML/MIN (>89); POTASSIUM 4.1 MEQ/L (3.5-5.1); SODIUM (NA) 137 MEQ/L (136-145); TOTAL BILIRUBIN ADULT 0.7 MG/DL (0.2-1.0)
--- NOTE | 2017-05-04 07:28 | PD.TRANSFR ---
Transfer Summary Admission Date May 02, 2017 at 18:38 Transfer Date: May 04, 2017 Admitting Diagnosis [facility] Diagnoses: (1) Intracranial hemorrhage Diagnosis: Principal (2) Fall Diagnosis: Principal (3) Uncontrolled hypertension Diagnosis: Principal Transfer Summary/Subjective 81-year-old female with history of diabetes and chronic kidney disease brought in by [facility] secondary lethargy and altered mental status. The patient' s son called 911 due to patient being extremely lethargic and having some altered mental status. Per chart the patient has not been acting herself for the past day or so. Paramedics report that patient had no specific complaints other than headache on arrival and that she had a mild temperature elevation of approximately 100.1 orally. During my examination in the emergency department patient does have some altered mental status, she is aware of person only. CT of the head diagnosed an acute parenchymal hemorrhage within the left frontal lobe measuring 13 mm. scattered acute subdural hematomas within the frontal lobes bilaterally measuring 4 mm on the left and 3 mm on the right, left parafalcine region in the high parietal lobe measuring 5 mm and left temporal region measuring 5 mm. Minimal acute subarachnoid hemorrhage within the left frontal lobe and bilateral temporal lobes. 05/03 . Lying in bed today oriented 3. Improved hemorrhage on the CT done today. Blood pressure better controlled after starting home meds 05/04: Lying in bed oriented 3 family at bedside. Single blood pressure reading above 180. Will increase Norvasc to 10 and increase enalapril to 20 twice a day Objective Vital Signs Date Time Temp Pulse Resp B/P Pulse Ox O2 Delivery O2 Flow Rate FiO2 05/04/17 06:00 65 05/04/17 04:00 97.9 21 130/60 98 05/03/17 19:00 Room Air 95 05/03/17 08:00 2.00 Intake and Output 05/03/17 05/03/17 05/04/17 08:00 16:00 00:00 Intake Total 284 ml 1240 ml 1311 ml Output Total 0 ml Balance 284 ml 1240 ml 1311 ml Result Diagram: 05/04/17 0530 05/04/17 05 Objective Remarks GENERAL: Elderly female lying in bed SKIN: Warm and dry. HEAD: Normocephalic. EYES: No scleral icterus. No injection or drainage. NECK: Supple, trachea midline. No JVD or lymphadenopathy. CARDIOVASCULAR: Regular rate and rhythm without murmurs, gallops, or rubs. Hypertensive RESPIRATORY: Breath sounds equal bilaterally. No accessory muscle use. GASTROINTESTINAL: Abdomen soft, non-tender, nondistended. MUSCULOSKELETAL: No cyanosis, or edema. BACK: Nontender without obvious deformity. No CVA tenderness. EXTREMITIES: Moves all 4, clubbing cyanosis or edema NEURO: AO x3, no obvious focal deficits. Follows commands Urinary Catheter: Yes Assessment to: Continue A/P Assessment and Plan Acute parenchymal hemorrhage within the left frontal, scattered acute SHD bilaterally and minimal acute SAH - No indication for surgical intervention - Blood pressure control, target SBP <150 - Clinically improved, neuro exam improving. CT head resolving hemorrhage - Supportive care - PT and OT eval and treat as tolerated - Neurosurgery appreciated Diabetes - Insulin sliding scale Chronic kidney disease - Strict I's and O's - Electrolyte replacement per ICU protocol - Monitor creatinine levels Hypertension - Labetalol when necessary to keep SBP less than 150 - Increase Norvasc to 10 mg daily. Increase lisinopril to 20 twice a day - Add when necessary IV hydralazine for SBP more than 150 DVT GI prophylaxis - Teds SCDs - No pharmacological DVT prophylaxis due to bleed - Pepcid Critical Care: Level 2 Transfer to floor, consult hospitalist to assume care in Tina Asencio MD May 04, 2017 07:28
[2017-05-04] MEDS ORDERED: hydrALAZINE HCL 20 MG/ML VIAL IV PUSH PRN (07:45)
[2017-05-04] MEDS ORDERED: ENALAPRIL MALEATE 5 MG TAB PO SCH ×2 (10:00→21:00)
[2017-05-04] MEDS: CYANOCOBALAMIN 1,000 MCG TAB PO SCH (13:20)
[2017-05-04] MEDS: ENALAPRIL MALEATE 10 MG TAB PO SCH ×3 (13:20→22:12)
[2017-05-04] MEDS: FAMOTIDINE 20 MG TAB PO SCH (13:20)
--- NOTE | 2017-05-04 17:31 | MB ---
cc: ANNE KELSEY DATE OF CONSULTATION: 05/04/2017. TRAVEL IN THE LAST THIRTY DAYS: None. HISTORY OF PRESENT ILLNESS: This is an 81-year-old white female who was in her usual state of health up until the evening before her admission date when she recollects going out to her garage to get some water. She has no recollection of any fall or any problems but states that the next morning when she woke up she was in her bed. She notes that her son had tried to reach her but could not and had come over to check on her. On arrival, the patient states that the paramedics and EMS personnel noted her to have altered mental status. She was brought to the emergency room for further workup. The patient was noted after being evaluated that she had a subarachnoid hemorrhage. She has been in the intensive care unit setting but is now stabilized. We will see her for her medical management during the rest of her hospital course. PAST MEDICAL HISTORY: 1. Chronic kidney disease. 2. Recent fall. 3. Uncontrolled hypertension. PAST SURGICAL HISTORY: No major ones. ALLERGIES: NO KNOWN ALLERGIES. CURRENT MEDICATIONS: 1. Amlodipine. 2. Pepcid. 3. Vitamin B12. 4. Vasotec. 5. Apresoline PRN. 6. Synthroid. 7. Lipitor. 8. Stool softeners. 9. Labetalol PRN. SOCIAL HISTORY: The patient is . Currently lives alone. No tobacco, alcohol or illicit drug use. REVIEW OF SYSTEMS: A twelve-point review was obtained and positives noted are some mild periods of amnesia but currently knows person, place and time and realizes that she is in the hospital. Previous mild periods of amnesia but currently remembers what is going on around her now. Denies any chest pain. No shortness of breath. Mild headache, which is now relieved. Other systems negative or unremarkable. PHYSICAL EXAMINATION: VITAL SIGNS: Temperature is 98, pulse 59, respirations 17, blood pressure 144/67, 02 saturation 94. GENERAL: Well-nourished elderly female looks to be younger than her stated age resting in the bed. She is awake and conversational. SKIN: Pale but warm and dry. HEAD, EYES, EARS, NOSE, THROAT: Normocephalic and atraumatic. Pupils equal, round and reactive to light and accommodation. No scleral icterus. The mucous membranes are moist and pink. NECK: The neck is supple. CARDIOVASCULAR: S1 and S2. Regular rate and rhythm. Soft murmur 2/6 noted at the left sternal border. She has no edema and her pulses are intact. LUNGS: Lung pope essentially clear anteriorly and posteriorly. ABDOMEN: Flat, soft, nontender and nondistended. Active bowel sounds. MUSCULOSKELETAL: Moves her extremities with purpose. She can overcome resistance. Her hand art professor are essentially equal. NEUROLOGIC: Alert, oriented and a fairly good historian. Tongue is midline. Speech is clear. SKIN: [place] warm and dry. DIAGNOSTIC DATA: White blood cell count 10, RBCs 4.57, hemoglobin 13, hematocrit 38.1, platelet count is 177,000, neutrophil percentage count is 74.5, monocyte count 11.9. PT and INR 1. Chemistry is 137, potassium 4.1, chloride 111, carbon dioxide 19, BUN is 12, creatinine 0.73, GFR 76, random glucose 154, phosphorus 2 and then again 1.7. AST 13. Albumin 3.1. Total protein 6.4. IMAGING STUDIES: Recent CT shows reduction in size of subdural hematoma adjacent to the falx and left frontal lobe hemorrhage. No mass effect. ASSESSMENT: 1. Intracranial bleed. 2. Subdural hematoma. 3. Left frontal lobe hemorrhage which is resolving. 4. Chronic kidney disease. 5. Initially had mild hyponatremia, which has resolved. 6. Hyperglycemia in the presence of non-diabetes, but this could be related to stress. We will continue to monitor. 7. Debility. PLAN: 1. Monitor her labs. 2. Reconcile any medications that are warranted. 3. Monitor her blood pressure. 4. The patient has hydralazine ordered IV PRN if needed. 5. The patient will need physical therapy to work with her for the next few days and build up her strength again. 6. Will monitor intake and output. 7. The patient's heart rate is been noted to be labile between 59 and 95 and resting in the 60s at times. Will place her on telemetry. 8. Continue to monitor her medical management. Thank you very much for this consultation. Dictated by MARÍA Moreno. MD LORIE Hurd/CHIP /4:57 PM /5:07 PM
[2017-05-04] MEDS: SODIUM CHLORIDE 0.9% FLUSH 10 ML FLUSH SCH (21:00)
[2017-05-04] MEDS ORDERED: ENALAPRIL MALEATE 10 MG TAB PO SCH (21:00)
[2017-05-04] MEDS: DOCUSATE SODIUM 50 MG/SENNA 8.6 MG TAB PO SCH (22:12)
[2017-05-04] MEDS: ATORVASTATIN 10 MG TAB PO SCH (22:13)
[2017-05-05] VITALS (9 sets, daily range): BP systolic 132–175; BP diastolic 57–78; PULSE 59–87; RESP 18–20; TEMP 96.7–98.3; O2SAT 95–100
[2017-05-05] MEDS: CHLORHEXIDINE GLUCONATE 2 % 1 PACK (2 CLOTHS) TOP SCH (04:00)
[2017-05-05] MEDS: LEVOTHYROXINE SODIUM 50 MCG TAB PO SCH (06:59)
[2017-05-05] MEDS: CYANOCOBALAMIN 1,000 MCG TAB PO SCH (09:55)
[2017-05-05] MEDS: FAMOTIDINE 20 MG TAB PO SCH (09:55)
[2017-05-05] MEDS: ENALAPRIL MALEATE 10 MG TAB PO SCH ×2 (09:55→20:45)
[2017-05-05] MEDS: DOCUSATE SODIUM 50 MG/SENNA 8.6 MG TAB PO SCH ×2 (09:56→20:44)
--- NOTE | 2017-05-05 11:52 | HHI.NSPN ---
History Chief Complaint: Headache Interval History Interval History 05/02: 81-year-old female who lives alone brought to the emergency room per EMS after her family called concerned regarding altered mental status for the past few days. The patient states that she has had a moderate headache for a few days. Denies any definite fevers, but states that she may feel "a little warm". Denies any chest pain, shortness breath, abdominal discomfort, nausea, emesis, urinary tract symptoms. She complains of some aching in her cast but no significant joint pain. No recent skin lesions or rash. She does not admit to any definite confusion. She does state that she has not felt well for a few days, but does not verbalize any specific complaints. She states that she has been eating relatively well. She is not aware that she has fallen. Denies significant gait difficulty 05/03: The patient is asleep but awakens to verbal stimuli. She is alert after that and readily interacts. She says she is doing good but does endorse a headache to the frontal region. She also endorses some dizziness if she lifts her head off the pillow an 05/04: Patient is awake and alert without complaints of headache, nausea or visual dysfunction. She has been up and ambulating in the room. 05/05: Patient is awake and alert. No complaints. Tolerating diet without difficulty. Exam Results Vital Signs Date Time Temp Pulse Resp B/P Pulse Ox O2 Delivery O2 Flow Rate FiO2 05/05/17 08:11 98.3 59 18 136/57 95 05/04/17 11:29 21 05/04/17 07:00 Nasal Cannula 2.00 Intake and Output 05/04/17 05/04/17 05/05/17 08:00 16:00 00:00 Intake Total 1006 ml 800 ml 240 ml Balance 1006 ml 800 ml 240 ml Physical Examination NEUROLOGICAL: Alert and awake. Mental status is normal. Patient is oriented 3. Speech intact. Cranial nerves II-XII intact. Motor 5 over 5 throughout. Sensory intact to light touch and pain. Lab, Micro, Other Results Last Impressions Head CT 05/03/17 1000 Signed Impressions: Service Date/Time: Wednesday, May 03, 2017 14:15 - CONCLUSION: Reduction in size of the subdural hematoma adjacent to the falx and left frontal lobe hemorrhage. No mass effect. Alexandra Do MD Chest X-Ray 05/02/17 1549 Signed Impressions: Service Date/Time: , May 02, 2017 15:56 - CONCLUSION: Left basilar airspace disease with probable associated effusion. Gold Damon MD Cervical Spine CT 05/02/17 0000 Signed Impressions: Service Date/Time: , May 02, 2017 19:32 - CONCLUSION: 1. Moderate to severe degenerative disc disease and facet arthropathy. No acute bony abnormality. Meño Sarah MD Medical Decision Making Impression and Plan Status post closed head injury with left frontal contusional hemorrhage and scattered small subdural hemorrhages which are stable on follow-up CT scan. Neurological examination intact. Plan: Patient doing well at this time and is ready for rehabilitation or home discharge as deemed appropriate. Corky Gimenez MD May 05, 2017 11:52
--- NOTE | 2017-05-05 13:58 | HHI.PR ---
Subjective Remarks Follow-up for contusion, intracranial hemorrhage. Patient is currently doing well. Denies any chest pain, shortness of breath, fever or chills. She is ambulating well in the room. Tolerating diet well. Objective Vitals Vital Signs Date Time Temp Pulse Resp B/P Pulse Ox O2 Delivery O2 Flow Rate FiO2 05/05/17 12:11 97.7 67 19 175/76 97 05/05/17 08:11 98.3 59 18 136/57 95 05/05/17 06:37 97.9 65 18 133/63 98 05/05/17 00:55 61 05/05/17 00:00 97.0 71 18 132/78 98 05/04/17 20:00 98.2 73 18 127/80 96 05/04/17 16:17 98.0 68 19 167/77 98 I/O 05/04/17 05/04/17 05/04/17 05/05/17 05/05/17 05/05/17 06:59 14:59 22:59 06:59 14:59 22:59 Intake Total 1006 ml 800 ml 240 ml Balance 1006 ml 800 ml 240 ml Intake Oral 150 ml 600 ml 240 ml IV Total 856 ml 200 ml # Voids 1 3 2 1 # Bowel Movements 0 1 0 Result Diagram: 05/04/17 0530 05/04/17 0530 Imaging Last Impressions Head CT 05/03/17 1000 Signed Impressions: Service Date/Time: Wednesday, May 03, 2017 14:15 - CONCLUSION: Reduction in size of the subdural hematoma adjacent to the falx and left frontal lobe hemorrhage. No mass effect. K. Cuong Do MD Chest X-Ray 05/02/17 1549 Signed Impressions: Service Date/Time: April 15:56 - CONCLUSION: Left basilar airspace disease with probable associated effusion. Gold Damon MD Cervical Spine CT 05/02/17 0000 Signed Impressions: Service Date/Time: April 19:32 - CONCLUSION: 1. Moderate to severe degenerative disc disease and facet arthropathy. No acute bony abnormality. Meño Sarah MD Objective Remarks GENERAL: Alert, NAD. SKIN: Warm and dry. HEAD: Normocephalic. EYES: No scleral icterus. No injection or drainage. NECK: Supple, trachea midline. No JVD or lymphadenopathy. CARDIOVASCULAR: Regular rate and rhythm without murmurs, gallops, or rubs. RESPIRATORY: Breath sounds equal bilaterally. No accessory muscle use. GASTROINTESTINAL: Abdomen soft, non-tender, nondistended. MUSCULOSKELETAL: No cyanosis, or edema. BACK: Nontender without obvious deformity. No CVA tenderness. Procedures None A/P Problem List: (1) Intracranial hemorrhage ICD Code: I62.9 Status: Acute (2) Fall ICD Code: W19.XXXA Status: Acute (3) Uncontrolled hypertension ICD Code: I10 Status: Acute Assessment and Plan Ms. Rojas is a pleasant 81-year-old female with a history of HTN, diabetes presented to the emergency department on 05/02/2017 due to lethargy and altered mental status. She likely fell and passed out in the garage. Imaging studies showed acute parenchymal hemorrhage, scattered acute subdural hematomas and minimal subarachnoid hemorrhage. Neurosurgery was consulted. - Acute left frontal lobe parenchymal hemorrhage - Scattered acute subdural hematoma - Acute subarachnoid hemorrhage within the left frontal lobe and bilateral temporal lobes. - No indication for surgical intervention. Neurosurgery following. - Blood pressure control, target SBP <150 - Clinically improved, neuro exam improving. CT head resolving hemorrhage - PT and OT eval and treat as tolerated - Hypertension - Hyperlipidemia - Continue enalapril 20 mg twice a day. - Switch Amlodipine to Nifedipine 60mg BID. - D/C PRN IV anti-hypertensives. Start Clonidine 0.1mg PRN - Continue Atorvastatin 10mg QHS. Diabetes mellitus - Start Levemir 5 units QHS and sliding scale insulin. Full code. SCDs. Discharge plan: Will consult CM to look into [facility] vs. SNF. Navdeep Hernandez DO May 05, 2017 1:58 pm
[2017-05-05] MEDS ORDERED: cloNIDine HCL 0.1 MG TAB PO PRN (15:45)
[2017-05-05] MEDS ORDERED: DEXTROSE 50% IN WATER 50 ML VIAL(D50) IV PRN (15:45)
[2017-05-05] MEDS ORDERED: GLUCAGON 1 MG/ML VIAL OTHER PRN (15:45)
[2017-05-05] MEDS: INSULIN ASPART SUPPLEMENTAL SCALE SQ SCH ×2 (16:00→21:00)
[2017-05-05] MEDS: ATORVASTATIN 10 MG TAB PO SCH (20:44)
[2017-05-05] MEDS: NIFEdipine 60 MG SUSTAINED RELEASE TAB PO SCH (20:44)
[2017-05-05] MEDS: SODIUM CHLORIDE 0.9% FLUSH 10 ML FLUSH SCH (21:00)
[2017-05-05] MEDS ORDERED: INSULIN DETEMIR 100 UNITS/ML VIAL SQ SCH (21:00)
[2017-05-06 04:00] VITALS: BP 127/59; PULSE 72; RESP 18; TEMP 98.6; O2SAT 93
[2017-05-06] MEDS: CHLORHEXIDINE GLUCONATE 2 % 1 PACK (2 CLOTHS) TOP SCH (04:00)
[2017-05-06] MEDS: LEVOTHYROXINE SODIUM 50 MCG TAB PO SCH (06:22)
[2017-05-06] MEDS: INSULIN ASPART SUPPLEMENTAL SCALE SQ SCH ×2 (06:23→11:47)
[2017-05-06 07:49] VITALS: BP 127/61; PULSE 66; RESP 18; TEMP 98.3; O2SAT 94
[2017-05-06] MEDS: CYANOCOBALAMIN 1,000 MCG TAB PO SCH (08:04)
[2017-05-06] MEDS: DOCUSATE SODIUM 50 MG/SENNA 8.6 MG TAB PO SCH (08:04)
[2017-05-06] MEDS: ENALAPRIL MALEATE 10 MG TAB PO SCH (08:04)
[2017-05-06] MEDS: NIFEdipine 60 MG SUSTAINED RELEASE TAB PO SCH (08:04)
[2017-05-06] MEDS: FAMOTIDINE 20 MG TAB PO SCH (08:04)
[2017-05-06] MEDS: SODIUM CHLORIDE 0.9% FLUSH 10 ML FLUSH SCH (08:05)
[2017-05-06 11:27] VITALS: BP 119/57; PULSE 65; RESP 18; TEMP 97.6; O2SAT 97
[2017-05-06 11:29] VITALS: PULSE 74
--- NOTE | 2017-05-06 12:03 | HHI.NSPN ---
(Chet Raphael) History Chief Complaint: None at present. (Chet Raphael) Interval History 05/02: 81-year-old female who lives alone brought to the emergency room per EMS after her family called concerned regarding altered mental status for the past few days. The patient states that she has had a moderate headache for a few days. Denies any definite fevers, but states that she may feel "a little warm". Denies any chest pain, shortness breath, abdominal discomfort, nausea, emesis, urinary tract symptoms. She complains of some aching in her cast but no significant joint pain. No recent skin lesions or rash. She does not admit to any definite confusion. She does state that she has not felt well for a few days, but does not verbalize any specific complaints. She states that she has been eating relatively well. She is not aware that she has fallen. Denies significant gait difficulty 05/03: The patient is asleep but awakens to verbal stimuli. She is alert after that and readily interacts. She says she is doing good but does endorse a headache to the frontal region. She also endorses some dizziness if she lifts her head off the pillow and pain to the neck. 05/04: Patient is awake and alert without complaints of headache, nausea or visual dysfunction. She has been up and ambulating in the room. 05/05: Patient is awake and alert. No complaints. Tolerating diet without difficulty. 05/06: The patient is awake and alert when seen without any complaints. She did endorse a headache earlier that was relieved with Tylenol as well as brief dizziness when she lays back down. She reports that she is getting up and ambulating without any difficulty and that Physical Therapy okayed her for discharge. (Chet Raphael) System Review Comments Constitutional: Patient denies any fever or chills. 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 She denies any pain to the head or any visual problems. Neck: Patient denies any pain to or difficulty moving the neck. Respiratory: Patient denies any shortness of breath or productive cough. Cardiovascular: Patient denies any chest apin, palpitations or irregular heartbeat. Gastrointestinal: Patient denies any abdominal pain, nausea, vomiting or incontinence of stool. Genitourinary: Patient denies any incontinence of urine. Musculoskeletal: Patient denies any pain or weakness to the extremities. Neurologic: Patient states she did have a headache earlier relieved with Tylenol. She also endorsed some brief dizziness when she lays down. She denies any numbness or tingling. (Chet Raphael) Exam Results Vital Signs Date Time Temp Pulse Resp B/P Pulse Ox O2 Delivery O2 Flow Rate FiO2 05/06/17 11:29 74 05/06/17 11:27 97.6 18 119/57 97 05/06/17 08:20 Room Air 94 05/04/17 07:00 2.00 Intake and Output 05/05/17 05/05/17 05/06/17 08:00 16:00 00:00 Intake Total 720 ml Balance 720 ml (Chet Raphael) Physical Examination GENERAL: Awake & alert, readily interacts, affect normal, no apparent distress. SKIN: Warm & dry. Ecchymosis to left elbow and abrasion to left forearm. HEENT: Occipital scalp NTTP. NECK: Full active ROM w/o difficulty or pain, no JVD, trachea midline. CARDIOVASCULAR: S1S2 w/RRR w/o M/G/R, radial & pedal pulses 2+, cap refill < 2 sec, no pedal edema. RESPIRATORY: CTAB w/o W/R/R, equal excursion, nonlaboured, on RA. GASTROINTESTINAL: Abdomen soft, nontender, positive bowel sounds. MUSCULOSKELETAL: [place] w/o difficulty, no evident deformity or clubbing. NEUROLOGICAL: AAOx3. Speech is clear & appropriate. Follows simple commands w/o difficulty. Sensation grossly intact to light touch. Motor strength 5/5 to all major flexion & extension muscle groups. (Chet Raphael) Medical Decision Making Impression and Plan Impression: 1. 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 She does not actually recall any particular injury and may have had a syncopal episode. 2. History of diabetes 3. History of chronic kidney disease Physical Therapy recommends discharge home w/o any skilled needs. The patient continues to do well and remains neurologically intact. Plan: Plan of care discussed with patient. Primary management per Hospitalist/[employer]. Continue neuro checks. Non-chemical DVT prophylaxis. May mobilize out of bed as tolerated. Physical therapy. (Chet Raphael) Attending Statement I have personally seen and examined the patient on 05/06/17. Pertinent documentation and study results have been reviewed by the undersigned. I have personally developed the treatment plan and performed medical decision making. Agree with findings, exam, and treatment plan as noted above. Patient awake and alert today. A sitting headache Ambulating. Tolerating diet Examination today nonfocal Most recent CT scan images reviewed again. Stable for discharge today. No neurosurgery follow-up necessary at this time. Can follow as needed as an outpatient. (Gerry Negron MD) Chte Raphael May 06, 2017 12:03 Gerry Negron MD May 06, 2017 19:36
--- NOTE | 2017-05-06 14:25 | HHI.FF ---
Face to Face Verification Diagnosis: (1) Intracranial hemorrhage (2) Fall Physical Therapy Order: Evaluate and Treat, Improve ambulation, Strength and gait training Home Health Nursing Order: Medical education Signs/symptoms of disease process Nursing assessment with vital signs I have seen patient eGla Rojas on 05/06/17. My clinical findings support the need for the requested home health care services because: Ltd mobility - disease progression Deconditioned w/ increased weakness Limited ability to care for self Need for psychosocial assistance High risk of falls Infection w/ risk of complications I certify that my clinical findings support that this patient is homebound because: Impaired cognitive ability/safety Unsteady gait/balance Unsafe to leave home unassisted Unable to use public transportation Navdeep Hernandez DO May 06, 2017 2:25 pm
[2017-05-06] MEDS ORDERED: NIFE60TA8 PO (14:28)
--- NOTE | 2017-05-06 14:32 | HHI.DS ---
Discharge Summary Admission Date May 02, 2017 at 6:38 pm Discharge Date: May 06, 2017 Admitting Diagnosis I[facility] (1) Intracranial hemorrhage ICD Code: I62.9 Diagnosis: Principal (2) Fall ICD Code: W19.XXXA Diagnosis: Principal (3) Uncontrolled hypertension ICD Code: I10 Diagnosis: Principal Procedures None Brief History - From Admission 81-year-old female with history of diabetes and chronic kidney disease brought in by [facility] secondary lethargy and altered mental status. The patient' s son called 911 due to patient being extremely lethargic and having some altered mental status. Per chart the patient has not been acting herself for the past day or so. Paramedics report that patient had no specific complaints other than headache on arrival and that she had a mild temperature elevation of approximately 100.1 orally. During my examination in the emergency department patient does have some altered mental status, she is aware of person only. CT of the head diagnosed an acute parenchymal hemorrhage within the left frontal lobe measuring 13 mm. scattered acute subdural hematomas within the frontal lobes bilaterally measuring 4 mm on the left and 3 mm on the right, left parafalcine region in the high parietal lobe measuring 5 mm and left temporal region measuring 5 mm. Minimal acute subarachnoid hemorrhage within the left frontal lobe and bilateral temporal lobes. CBC/BMP: 05/04/17 0530 05/04/17 0530 Significant Findings Laboratory Tests Test 05/04/17 05:30 Neutrophils (%) (Auto) 74.5 % (16.0-70.0) Monocytes (%) (Auto) 11.9 % (0.0-8.0) Monocytes # (Auto) 1.2 TH/MM3 (0-0.9) Chloride Level 111 MEQ/L (98-107) Carbon Dioxide Level 19.0 MEQ/L (21.0-32.0) Estimat Glomerular Filtration 76 ML/MIN (>89) Rate Random Glucose 154 MG/DL (74-106) Phosphorus Level 1.7 MG/DL (2.5-4.9) Aspartate Amino Transf 13 U/L (15-37) (AST/SGOT) Albumin 3.1 GM/DL (3.4-5.0) Imaging Last Impressions Head CT 05/03/17 1000 Signed Impressions: Service Date/Time: Wednesday, May 03, 2017 14:15 - CONCLUSION: Reduction in size of the subdural hematoma adjacent to the falx and left frontal lobe hemorrhage. No mass effect. Alexandra Do MD Chest X-Ray 05/02/17 1549 Signed Impressions: Service Date/Time: , May 02, 2017 15:56 - CONCLUSION: Left basilar airspace disease with probable associated effusion. Gold Damon MD Cervical Spine CT 05/02/17 0000 Signed Impressions: Service Date/Time: , May 02, 2017 19:32 - CONCLUSION: 1. Moderate to severe degenerative disc disease and facet arthropathy. No acute bony abnormality. Meño Sarah MD PE at Discharge GENERAL: Alert, NAD. SKIN: Warm and dry. HEAD: Normocephalic. EYES: No scleral icterus. No injection or drainage. NECK: Supple, trachea midline. No JVD or lymphadenopathy. CARDIOVASCULAR: Regular rate and rhythm without murmurs, gallops, or rubs. RESPIRATORY: Breath sounds equal bilaterally. No accessory muscle use. GASTROINTESTINAL: Abdomen soft, non-tender, nondistended. MUSCULOSKELETAL: No cyanosis, or edema. BACK: Nontender without obvious deformity. No CVA tenderness. Transfer Summary 81-year-old female with history of diabetes and chronic kidney disease brought in by [facility] secondary lethargy and altered mental status. The patient' s son called 911 due to patient being extremely lethargic and having some altered mental status. Per chart the patient has not been acting herself for the past day or so. Paramedics report that patient had no specific complaints other than headache on arrival and that she had a mild temperature elevation of approximately 100.1 orally. During my examination in the emergency department patient does have some altered mental status, she is aware of person only. CT of the head diagnosed an acute parenchymal hemorrhage within the left frontal lobe measuring 13 mm. scattered acute subdural hematomas within the frontal lobes bilaterally measuring 4 mm on the left and 3 mm on the right, left parafalcine region in the high parietal lobe measuring 5 mm and left temporal region measuring 5 mm. Minimal acute subarachnoid hemorrhage within the left frontal lobe and bilateral temporal lobes. 05/03 . Lying in bed today oriented 3. Improved hemorrhage on the CT done today. Blood pressure better controlled after starting home meds 05/04: Lying in bed oriented 3 family at bedside. Single blood pressure reading above 180. Will increase Norvasc to 10 and increase enalapril to 20 twice a day Pt update on day of discharge Patient is sitting in her chair. No acute concerns. No fever, chills. Ambulating well in the room. She does not feel she needs SNF placement. Hospital Course Ms. Rojas is a pleasant 81-year-old female with a history of HTN, diabetes presented to the emergency department on 05/02/2017 due to lethargy and altered mental status. She likely fell and passed out in the garage. Imaging studies showed acute parenchymal hemorrhage, scattered acute subdural hematomas and minimal subarachnoid hemorrhage. Neurosurgery was consulted. - Acute left frontal lobe parenchymal hemorrhage - Scattered acute subdural hematoma - Acute subarachnoid hemorrhage within the left frontal lobe and bilateral temporal lobes. - No indication for surgical intervention. Neurosurgery following. - Blood pressure control, target SBP <150 - Clinically improved, neuro exam improving. CT head resolving hemorrhage - PT and OT eval and treat as tolerated - Discussed with neurosurgery who cleared for discharge. Follow up with neurosurgery in 4-6 weeks. - Hypertension - Hyperlipidemia - Continue enalapril 20 mg twice a day. - Switched Amlodipine to Nifedipine 60mg BID. - D/C PRN IV anti-hypertensives. Start Clonidine 0.1mg PRN - Continue Atorvastatin 10mg QHS. Diabetes mellitus - Start Levemir 5 units QHS and sliding scale insulin. Continue metformin on discharge. Full code. SCDs. Pt Condition on Discharge: Good Discharge Disposition: Disch w/ Home Health Serv Discharge Time: > 30 minutes Discharge Instructions DIET: Follow Instructions for: Diabetic Diet Speech Therapy-Diet Recommends: Soft Activities you can perform: Regular-No Restrictions Follow up Referrals: Neurosurgery - 4 Weeks with Gerry Negron MD PCP Follow-up - 1 Week New Medications: Nifedipine ER 24 HR (Nifedipine ER 24 HR) 60 Mg Tab 60 MG PO Q12HR Blood Pressure Management #60 TAB Continued Medications: Atorvastatin (Atorvastatin) 10 Mg Tab 10 MG PO HS Cholesterol Management #30 Ref 0 TAB Cetirizine (Cetirizine) 10 Mg Tab 10 MG PO DAILY Allergies Ref 0 TAB Cholecalciferol (D3 Maximum Strength) 5,000 Unit Cap 1000 UNITS PO DAILY Nutritional Supplement #30 Ref 0 CAP Coenzyme Q10 (Ubidecarenone) (Coq-10) 400 Mg Cap 200 MG PO DAILY Cyanocobalamin (B12) 1,000 Mcg Tab 1 TAB PO DAILY Enalapril (Enalapril) 20 Mg Tab 20 MG PO DAILY #30 Ref 0 TAB Gabapentin (Gabapentin) 100 Mg Cap 100 MG PO HS #30 Ref 0 CAP Levothyroxine (Levothyroxine) 50 Mcg Tab 50 MCG PO DAILY Thyroid #30 Ref 0 TAB Metformin ER (Metformin ER) 750 Mg Adrian 750 MG PO DAILY With evening meal Blood Sugar Management Ref 0 TAB Multivitamin (Ash-Ojgjvi-Zfdlg) 1 Each Tablet 1 TAB PO DAILY Omeprazole (Omeprazole) 20 Mg Tab 20 MG PO DAILY #30 Ref 0 TAB ([immutol]) 1 CAP PO DAILY ([magnesium]) ([os-jarvis]) Discontinued Medications: Amlodipine (Amlodipine) 5 Mg Tab 5 MG PO DAILY Blood Pressure Management #[address] Ref [address] (Aspirin 81) 81 Mg Tabdr 81 MG PO DAILY Ref 0 TAB Triamterene (Dyrenium) 50 Mg Cap 25 MG PO DAILY Edema #30 Ref 0 CAP Navdeep Hernandez DO May 06, 2017 14:32
== END 2017-05-06 16:23 | disposition home health service (06) | DRG 66 ==
LOC: NEPC 15:31 → NEDA 18:38 → N03A 21:04 → N05B 05-04 15:35
PROVIDERS: ADMIT Hospitalist; ATTEND Hospitalist
DX: I62.01 Nontraumatic acute subdural hemorrhage (principal); E11.22 Type 2 diabetes mellitus with diabetic chronic kidney disease; F03.90 Unspecified dementia, unspecified severity, without behavioral disturbance, psychotic disturbance, mood disturbance, and anxiety; I12.9 Hypertensive chronic kidney disease with stage 1 through stage 4 chronic kidney disease, or unspecified chronic kidney disease; I60.9 Nontraumatic subarachnoid hemorrhage, unspecified; N18.9 Chronic kidney disease, unspecified; E78.5 Hyperlipidemia, unspecified; M51.36 Other intervertebral disc degeneration, lumbar region; Z79.4 Long term (current) use of insulin; R41.82 Altered mental status, unspecified
CPT/HCPCS: 70450; 71010; 72125; 80048; 80053; 81001; 82948; 83605; 83735; 84100; 85025; 85610; 85730; 87040; 87641; 93005; 94150; J3480; J7030